=== PATIENT | male | born 1985 | race Caucasian/White ===

== ENCOUNTER 2020-03-18 21:16 | Emergency (ER) | payer MEDICAID ==
[~2020-03-18] VITALS: Ht 160 cm; Wt 63.6 kg
[2020-03-18 21:18] VITALS: BP 156/83
== END 2020-03-18 21:47 | disposition home or self-care (01) ==
LOC: ER 21:17
DX: F15.90 Other stimulant use, unspecified, uncomplicated (principal); F17.200 Nicotine dependence, unspecified, uncomplicated; F12.90 Cannabis use, unspecified, uncomplicated; Z72.89 Other problems related to lifestyle
CPT/HCPCS: 99281

== ENCOUNTER 2020-03-29 20:05 | Emergency (ER) | payer MEDICAID ==
[~2020-03-29] VITALS: Ht 160 cm; Wt 65.9 kg
[2020-03-29 20:13] VITALS: BP 137/79
== END 2020-03-29 21:18 | disposition left against medical advice (07) ==
LOC: ER 20:06
DX: R05 Cough (principal); Z53.21 Procedure and treatment not carried out due to patient leaving prior to being seen by health care provider

== ENCOUNTER 2020-04-05 11:31 | Emergency (ER) | payer MEDICAID ==
[~2020-04-05] VITALS: Ht 160 cm; Wt 69.1 kg
[2020-04-05] MEDS ORDERED: DIVA500T9 PO (13:10)
[2020-04-05] MEDS ORDERED: ALBU8HFA PO (13:10)
[2020-04-05] MEDS ORDERED: azithromycin 250mg tablet PO ONE (14:15)
[2020-04-05] MEDS ORDERED: CefTRIAXone 250MG IM Kit w/LIDOcaine IM ONE (14:15)
== END 2020-04-05 14:57 | disposition home or self-care (01) ==
LOC: ER 11:32
DX: J06.9 Acute upper respiratory infection, unspecified (principal); R19.7 Diarrhea, unspecified; R09.89 Other specified symptoms and signs involving the circulatory and respiratory systems; R05 Cough; F12.90 Cannabis use, unspecified, uncomplicated; Z72.89 Other problems related to lifestyle; Z79.899 Other long term (current) drug therapy
CPT/HCPCS: 71045; 96372; 99283; J0696

== ENCOUNTER 2020-04-26 18:11 | Emergency (ER) | payer MEDICAID ==
[~2020-04-26] VITALS: Ht 165.1 cm; Wt 69.1 kg
[~2020-04-26 18:11] MED LIST: ALBU8HFA PO; DIVA500T9 PO
[2020-04-26 18:28] VITALS: BP 128/59
[2020-04-26] MEDS ORDERED: bacitracin 15gm ointment TP ONE (19:25)
[2020-04-26] MEDS ORDERED: ibuprofen 200mg tablet PO ONE (19:30)
[2020-04-26] MEDS ORDERED: BACI1PAC7 TOP ×2 (19:32)
== END 2020-04-26 19:46 | disposition home or self-care (01) ==
LOC: ER 18:12
DX: T22.111A Burn of first degree of right forearm, initial encounter (principal); F15.90 Other stimulant use, unspecified, uncomplicated; F12.90 Cannabis use, unspecified, uncomplicated; Z72.89 Other problems related to lifestyle; Z59.0 Homelessness; Z91.018 Allergy to other foods; Z79.2 Long term (current) use of antibiotics; Z79.899 Other long term (current) drug therapy; X08.8XXA Exposure to other specified smoke, fire and flames, initial encounter; Y93.89 Activity, other specified; Y92.89 Other specified places as the place of occurrence of the external cause; Y99.8 Other external cause status
CPT/HCPCS: 99283

== ENCOUNTER 2021-08-11 12:07 | Emergency (ER) | payer MEDICAID ==
[~2021-08-11] VITALS: Ht 165.1 cm; Wt 74.1 kg
[2021-08-11 12:17] VITALS: BP 151/83
== END 2021-08-11 14:07 | disposition home or self-care (01) ==
LOC: ER 12:07
DX: Z13.89 Encounter for screening for other disorder (principal); F15.10 Other stimulant abuse, uncomplicated; F12.90 Cannabis use, unspecified, uncomplicated; Z72.89 Other problems related to lifestyle; Z59.00 Homelessness unspecified; Z91.018 Allergy to other foods
CPT/HCPCS: 99281

== ENCOUNTER 2023-04-18 13:51 | Emergency (ER) | payer MEDICAID ==
[~2023-04-18] VITALS: Ht 160 cm; Wt 74.5 kg
[2023-04-18 14:44] VITALS: BP 124/78; PULSE 86; RESP 18; TEMP 98.1; O2SAT 97
[2023-04-18] MEDS ORDERED: PERM60CR19 TOP (16:48)
[2023-04-18] MEDS ORDERED: DIPH25TA62 PO (16:48)
== END 2023-04-18 17:26 | disposition home or self-care (01) ==
LOC: ER 13:51
DX: B86 Scabies (principal); F12.10 Cannabis abuse, uncomplicated; F15.10 Other stimulant abuse, uncomplicated; Z88.8 Allergy status to other drugs, medicaments and biological substances; Z79.899 Other long term (current) drug therapy; Z91.018 Allergy to other foods
CPT/HCPCS: 99282